=== PATIENT | female | born 1965 | race Two or more races ===

== ENCOUNTER 2017-11-15 10:32 | Outpatient (CLI) | payer OTHER ==
[~2017-11-15 10:32] MED LIST: LISINOPRIL20 MG PO
== END 2017-11-15 10:40 | disposition home or self-care (01) ==
LOC: RAD 10:32
DX: I10 Essential (primary) hypertension (principal)

== ENCOUNTER → 2017-11-17 | Day surgery (SDC) | payer OTHER | END | disposition home or self-care (01) | LOC: CIR.AMB 07:42 | DX: D24.2 Benign neoplasm of left breast (principal) ==

== ENCOUNTER 2019-12-13 06:49 | Day surgery (SDC) | payer OTHER ==
[~2019-12-13 06:49] MED LIST changes: +COZAAR50 MG PO; +METOPROLOL SUCC25 MG PO
== END 2019-12-13 22:50 | disposition home or self-care (01) ==
LOC: CIR.AMB 06:49
PROVIDERS: ATTEND Surgery
DX: D24.2 Benign neoplasm of left breast (principal); Z20.828 Contact with and (suspected) exposure to other viral communicable diseases